=== PATIENT | male | born 1975 | race Two or more races ===

== ENCOUNTER 2025-02-22 06:36 | Outpatient (CLI) | payer BC ==
[2025-02-22 07:40] LABS: Hematocrit 44.7 % (41.0-53.0); Hemoglobin 15.4 g/dL (13.5-17.5); Mean Corpuscular Hemoglobin 27.9 pg (28.0-32.0); Mean Corpuscular Volume 81.2 fL (80.0-100.0); Nucleated Red Blood Cells % 0.0 %
[2025-02-22 07:54] LABS: Albumin 4.2 g/dL (3.2-4.8); Alkaline Phosphatase 69 U/L (46-116); Anion Gap 10 (5-15); BUN/Creatinine Ratio 9.4 (10.0-20.0); Bilirubin, Total 0.8 mg/dL (0.2-1.0); Blood Urea Nitrogen 11 mg/dL (9-23); Calcium 9.1 mg/dL (8.7-10.4); Carbon Dioxide 25 mmol/L (20-31); Chloride 106 mmol/L (98-107); Cholesterol 179 mg/dL (< 200); Glucose 93 mg/dL (74-106); Potassium 4.2 mmol/L (3.5-5.1); Prostate Specific Antigen 0.53 ng/mL (0.0-4.0); Sodium 141 mmol/L (136-145); Total Protein 7.6 g/dL (5.7-8.2)
[2025-02-22 07:58] LABS: Alanine Aminotransferase 41 U/L (7-40); HDL Cholesterol 34 mg/dL (40-59); Triglycerides 176 mg/dL (< 150)
[2025-02-22 07:59] LABS: Free T4 (Free Thyroxine) 1.92 ng/dL (0.89-1.76)
== END 2025-02-22 17:00 | disposition home or self-care (01) ==
LOC: LAB 06:36
PROVIDERS: ATTEND Internal Medicine
DX: Z00.01 Encounter for general adult medical examination with abnormal findings (principal)
CPT/HCPCS: 36415; 80053; 80061; 82043; 82274; 82306; 83036; 84153; 84439; 84443; 85025